=== PATIENT | female | born 1945 | race Caucasian/White ===

== ENCOUNTER 2016-07-29 08:29 | Inpatient (IN) ==
[2016-07-29] MEDS ORDERED: ASPIRIN PO STA (08:30)
[2016-07-29 08:44] LABS: MANUAL DIFF NEEDED? NO
[2016-07-29 08:46] LABS: BASO% 0.2 % (0.0-0.8); EOS# 0.18 X1000 (0.0-0.7); EOS% 1.9 % (0.0-10.0); HEMATOCRIT 37.3 % (37.0-47.0); HEMOGLOBIN 11.6 g/dL (12.0-16.0); IMM GRAN# 0.01 X1000 (0.0-0.04); IMM GRAN% 0.1 % (0.0-0.5); LYMPH# 1.73 X1000 (1.2-3.4); LYMPH% 18.2 % (20.5-51.1); MCH 29.3 PG (27-31); MCHC 31.1 g/dL (33-37); MCV 94.2 FL (81-99); MONO# 0.45 X1000 (0.11-0.59); MONO% 4.7 % (1.7-9.3); MPV 10.6 FL (7.4-10.4); NEUT% 74.9 % (42.2-75.2); PLT 209 X1000 (130-400); RBC 3.96 XMIL (4.2-5.4)
--- NOTE | 2016-07-29 08:49 | EKG Report ---
Test Performed on : 07/29/2016 08:34:05 AM Test Reason : SOB/CP Blood Pressure : / mmHG Vent. Rate : 069 BPM Atrial Rate : 069 BPM P-R Int : 170 ms QRS Dur : 162 ms QT Int : 448 ms P-R-T Axes : 002 -59 112 degrees QTc Int : 480 ms Sinus rhythm. with fusion complexes Left bundle branch block Abnormal ECG No previous ECGs available Unconfirmed Result
[2016-07-29 09:02] LABS: INR 2.52 (0.86-1.15); PROTIME 27.2 Seconds (12.1-15.5); PTT PL 41.1 Seconds (22.6-43.9)
[2016-07-29 09:10] LABS: ALBUMIN 3.6 g/dL (3.5-5.0); CALCIUM 8.6 mg/dL (8.8-10.2); MAGNESIUM 1.9 mg/dL (1.5-2.7); TOTAL BILIRUBIN 0.6 mg/dL (0.20-1.00); TOTAL PROTEIN 7.2 g/dL (6.3-8.3)
--- NOTE | 2016-07-29 11:07 | EKG Report ---
Test Performed on : 07/29/2016 10:34:04 AM Test Reason : repeat Blood Pressure : / mmHG Vent. Rate : 066 BPM Atrial Rate : 066 BPM P-R Int : 172 ms QRS Dur : 160 ms QT Int : 466 ms P-R-T Axes : -12 -16 151 degrees QTc Int : 488 ms Normal sinus rhythm. Left bundle branch block Abnormal ECG When compared with ECG of 29-JUL-2016 08:34, (Unconfirmed) fusion complexes are no longer present Unconfirmed Result
[2016-07-29] MEDS ORDERED: NITROGLYCERIN SL PRN (11:36)
--- NOTE | 2016-07-29 11:44 | Diag Imaging Result Document ---
PROCEDURE NAME: CHEST-2 VIEWS - 07/29/2016 CHEST, 2 VIEWS: COMPARISON: 06/13/2016. FINDINGS: Heart size appears upper normal. There is transvenous cardiac pacemaker again seen. There has been development of bilateral interstitial infiltrates or edema, most prominent at the lung bases. There is a small amount of pleural fluid along the right minor fissure. There is no dense consolidation, large pleural effusion or pneumothorax identified. IMPRESSION: Development of bilateral interstitial infiltrates or edema, most prominent at the lung bases. [facility]
[2016-07-29] MEDS ORDERED: LANOXIN PO SCH (12:08)
[2016-07-29] MEDS: LOPRESSOR PO SCH ×2 (12:40→20:28)
[2016-07-29] MEDS: CELEXA PO SCH (12:40)
[2016-07-29] MEDS: VITAMIN D PO SCH (12:40)
[2016-07-29] MEDS: LASIX IV SCH (12:40)
[2016-07-29] MEDS: ALDACTONE PO SCH (12:41)
[2016-07-29] MEDS: ASPIRIN PO SCH (12:43)
--- NOTE | 2016-07-29 13:27 | HISTORY AND PHYSICAL ---
PRIMARY CARE PHYSICIAN: Dr. Nicole Xie CHIEF COMPLAINT: Shortness of breath and weakness that has progressively worsened over the past couple of days. HISTORY: This is a 70-year-old female who presents to [facility] with complaints of increased shortness of breath and weakness that has been present over the past couple of days that had progressively worsened. On arrival, she was noted to have a room- air saturation of 94% and she had a proBNP of 2671. States that she had noticed when she weighed herself at home that she had gained approximately 5 pounds over the past couple of days. So, she is now being admitted for further evaluation and treatment. PAST MEDICAL HISTORY: [place], congestive heart failure and hypertension. PAST SURGICAL HISTORY: Pacemaker placement, defibrillator placement, heart stent. She had a cardiac cath at the end of last year that showed no blockage. FAMILY HISTORY: Noncontributory. SOCIAL HISTORY: She currently lives with family. Denies any tobacco, alcohol, or illicit drug use. ALLERGIES: She has no known drug allergies. HOME MEDICATIONS: She takes aspirin 81 mg p.o. daily, Lipitor 20 mg p.o. at bedtime, vitamin D 3 1000 unit capsule daily, Celexa 40 mg p.o. daily. Lanoxin 125 mcg p.o. daily, Ativan 1 mg p.o. at bedtime, Lopressor 25 mg p.o. b.i.d., Nitrostat 0.4 mg sublingually p.r.n., spironolactone 25 mg p.o. daily, and Coumadin 5 mg p.o. at bedtime. LABORATORY DATA: White blood cell count of 9.53, hemoglobin 11.6, hematocrit 37.3, platelets 209,000. PT and INR of 27.2 and 2.52, D-dimer less than 0.22. Sodium of 141, potassium 4.0, chloride 105, CO2 23, BUN of 22, creatinine 1.3. This appears to be around her baseline. Glucose 105, magnesium 1.9. Cardiac enzymes x2 sets were negative. A proBNP of 2671. Chest x-ray showed development of bilateral interstitial infiltrates or edema most prominent at the lung bases. REVIEW OF SYSTEMS: She denied any fever, chills, blurred vision, dizziness, chest pain, coughing, she was positive for shortness of breath and some generalized weakness. Denied any abdominal pain, constipation, diarrhea, nausea, vomiting or burning or hurting with urination. PHYSICAL EXAMINATION: VITAL SIGNS: On arrival, she had a showed a temperature of 98.9 degrees. Pulse 74, respirations 18, blood pressure 115/80, saturating 94% on room air. GENERAL: This is a 70-year-old female who is lying in the bed. Answers all questions appropriately. HEENT: Normocephalic and atraumatic. The pupils are equal, round, reactive to light. Extraocular movements are intact. The oropharynx and nares are clear. NECK: Supple. LUNGS: Clear to auscultation with equal lung expansion and chest wall movement. HEART: Regular rate and rhythm. No murmurs, rubs, or gallops. ABDOMEN: Soft, nontender, nondistended. Bowel sounds are present x4 quadrants. EXTREMITIES: There is no clubbing, cyanosis, or edema. NEUROLOGICAL: The cranial nerves 2-12 are grossly intact. ASSESSMENT: 1. An acute congestive heart failure exacerbation. 2. Dyspnea. 3. Generalized weakness. 4. Hypertension. PLAN: She has been admitted to the medical unit at [facility]. Placed on telemetry. O2 per protocol. Healthy heart diet. We will obtain an echocardiogram today. Check Pro time with INR in the a.m. We will do serial cardiac enzymes. Place on Lasix 40 mg IV q.12h. Daily weights, and we will restart her home medications. It is noted that the patient does not have a living will and is not interested in one at this time and remains a full code. Dictated by ZULEIMA Monte for Gomez Gallardo MD cc: ZULEIMA Monte MD Bernice Swain, MD will evaluate for CHF closely ; continue diuresis and follow [facility]
[2016-07-29] MEDS ORDERED: ZOFRAN IV PRN (15:39)
[2016-07-29] MEDS ORDERED: TYLENOL PO PRN (15:39)
[2016-07-29] MEDS: LIPITOR PO SCH (20:27)
[2016-07-29] MEDS: COUMADIN PO SCH (20:28)
[2016-07-29] MEDS: ATIVAN PO SCH (20:28)
[2016-07-29] MEDS ORDERED: LOPRESSOR PO SCH (21:00)
[2016-07-30] MEDS: LASIX IV SCH ×4 (00:34→23:30)
[2016-07-30 05:39] LABS: HEMATOCRIT 36.5 % (37.0-47.0); HEMOGLOBIN 11.1 g/dL (12.0-16.0); MCH 28.7 PG (27-31); MCHC 30.4 g/dL (33-37); MCV 94.3 FL (81-99); MPV 11.9 FL (7.4-10.4); RBC 3.87 XMIL (4.2-5.4)
[2016-07-30 06:05] LABS: CALCIUM 8.8 mg/dL (8.8-10.2); POTASSIUM 3.9 mmol/L (3.5-5.1)
[2016-07-30 06:11] LABS: INR 2.39 (0.86-1.15); PROTIME 26.1 Seconds (12.1-15.5)
[2016-07-30] MEDS: LOPRESSOR PO SCH ×2 (08:58→21:53)
[2016-07-30] MEDS: LANOXIN PO SCH (08:58)
[2016-07-30] MEDS: VITAMIN D PO SCH (08:58)
[2016-07-30] MEDS: CELEXA PO SCH (08:58)
[2016-07-30] MEDS: ALDACTONE PO SCH (08:58)
[2016-07-30] MEDS: ASPIRIN PO SCH (08:58)
[2016-07-30] MEDS ORDERED: ALDACTONE PO SCH (09:00)
[2016-07-30] MEDS ORDERED: CELEXA PO SCH (09:00)
[2016-07-30] MEDS ORDERED: VITAMIN D PO SCH (09:00)
[2016-07-30] MEDS ORDERED: ASPIRIN PO SCH (09:00)
[2016-07-30] MEDS ORDERED: LANOXIN PO SCH (09:00)
[2016-07-30 10:27] LABS: URINE CULTURE PL NEEDED? NO
[2016-07-30 10:31] LABS: BILIRUBIN URINE NEGATIVE (NEGATIVE); BLOOD URINE NEGATIVE (NEGATIVE); CLARITY CLEAR (CLEAR); COLOR YELLOW; GLUCOSE URINE NEGATIVE (NEGATIVE); LEUKOCYTES URINE NEGATIVE (NEGATIVE); NITRITE URINE NEGATIVE (NEGATIVE); PROTEIN URINE NEGATIVE (NEGATIVE); SP GRAVITY URINE 1.015; UROBILINOGEN URINE NORMAL
[2016-07-30 10:50] LABS: URINE EPITHELIAL CELLS <10 /HPF (<10); URINE SOURCE CLEAN CATCH
[2016-07-30] MEDS: PRINIVIL PO SCH (13:52)
--- NOTE | 2016-07-30 14:06 | ECHO REPORT ---
ORDER DATE: 07/29/2016 INTERPRETING PHYSICIAN: Dr. Ly REQUESTING PHYSICIAN: CLINICAL INDICATIONS: This is a 70-year-old female with CHF and shortness of breath, history of pacemaker. M-MODE MEASUREMENTS: Right ventricle: 2.6 cm. Left ventricle end diastole: 6.2 cm. Left ventricle end systole: 4.9 cm. Posterior wall: 1.0 cm. Interventricular septum: 1.0 cm. Left atrium: 4.9 cm. Aortic root: 3.1 cm. SUMMARY OF 2-DIMENSIONAL IMAGIN. The left ventricular chamber is dilated. The global left ventricular systolic function is significantly impaired, estimated at 25% to 30%. There are multiple areas of wall motion abnormality including the anteroseptal segment of the left ventricle, the apex, the interventricular septum, the inferior wall. This is consistent with multivessel coronary artery disease. 2. Best contractility noted at the lateral wall of the left ventricle. 3. Aortic valve looks normal. Color flow mapping is unremarkable. 4. Mitral valve shows mild to moderate degree of regurgitation. 5. Pulse wave Doppler of mitral inflow shows a pseudo normal pattern with a tall E wave and short A wave. 6. The tissue Doppler of septal and lateral mitral annulus averages 6 cm. 7. The E/E prime ratio is greater than 15, indicating elevation of left atrial pressure. 8. The tricuspid valve showed mild to moderate degree of regurgitation. 9. The inferior vena cava is at the upper limits of normal. 10.Pulmonary systolic pressure is estimated at 43 mmHg. 11.Pulmonic valve looks normal. 12.The left atrium is significantly dilated. 13.There is a trace pericardial effusion. 14.There is also a moderate size left pleural effusion. CONCLUSIONS: 1. Dilated left ventricle with significantly impaired systolic function. Ejection fraction visually is estimated to be in the range of 25% to 30%, by computer tracing may be closer to 30%, less than 35%. 2. Multiple areas of wall motion abnormality including the septum, the anteroseptal segment, the inferior wall. 3. Mild to moderate degree of mitral regurgitation. 4. Mild to moderate degree of tricuspid regurgitation with a pulmonary pressure of 43 mmHg. 5. Elevated left atrial pressure. 6. Dilated left atrium. 7. Pacemaker lead noted within the right-sided chamber. 8. Left pleural effusion noted. Clinical correlation is recommended. cc: MD Chelsey Cuello CRNP
--- NOTE | 2016-07-30 14:46 | PROGRESS NOTE ---
DATE: 07/30/2016 SUBJECTIVE: Patient has no focal complaints. OBJECTIVE: Blood pressure 134/89, heart rate 69, respiratory rate of 18, temperature 98 degrees, 92% on 2 L.Cardiovascular: Regular rate and rhythm. Pulmonary: Bilateral breath sounds. Clear to auscultation. Has rales on the bases. GI: Soft, nontender, nontender, nondistended. Bowel sounds are positive. LABORATORY DATA: Shows a white count of 8, hemoglobin and hematocrit 11, 36. INR of 2.39. Chemistry showed a creatinine of 1.4. Digoxin level was normal. PROBLEM LIST: 1. Acute congestive heart failure exacerbation presumed systolic. I am waiting on echocardiogram report. 2. Waiting on the echocardiogram results to decide about other treatment options. I am going to add an ARUN inhibitor. She is already on Aldactone, Lopressor, digoxin. 3. Hypertension appears to be stable. Continue regular medications and follow. DISPOSITION: Pending her resolution of her other issues may be another day or 2 before discharge. cc: Gomez Gallardo MD
[2016-07-30] MEDS: ATIVAN PO SCH (21:53)
[2016-07-30] MEDS: COUMADIN PO SCH (21:53)
[2016-07-30] MEDS: LIPITOR PO SCH (21:53)
[2016-07-31 06:05] LABS: HEMATOCRIT 36.7 % (37.0-47.0); HEMOGLOBIN 11.2 g/dL (12.0-16.0); MCH 28.6 PG (27-31); MCHC 30.5 g/dL (33-37); MCV 93.6 FL (81-99); MPV 11.5 FL (7.4-10.4); RBC 3.92 XMIL (4.2-5.4)
[2016-07-31 06:26] LABS: POTASSIUM 3.9 mmol/L (3.5-5.1)
[2016-07-31] MEDS: ALDACTONE PO SCH (08:47)
[2016-07-31] MEDS: VITAMIN D PO SCH (08:47)
[2016-07-31] MEDS: CELEXA PO SCH (08:48)
[2016-07-31] MEDS: ASPIRIN PO SCH (08:48)
[2016-07-31] MEDS: PRINIVIL PO SCH (08:48)
[2016-07-31] MEDS: LOPRESSOR PO SCH ×2 (08:48→20:46)
--- NOTE | 2016-07-31 09:29 | Diag Imaging Result Document ---
PROCEDURE NAME: CHEST-PORTABLE - 07/31/2016 PORTABLE CHEST: COMPARISON: 07/29/2016. FINDINGS: There is a left-sided pacemaker. The lungs are well expanded. The heart is mildly enlarged. The vessels are not distended. There are no infiltrates on the current exam. No pleural effusions. IMPRESSION: Cardiomegaly.
--- NOTE | 2016-07-31 15:35 | PROGRESS NOTE ---
DATE: 07/31/2016 SUBJECTIVE: The patient's breathing has improved. OBJECTIVE: Blood pressure 106/65, heart rate 65, respiratory 16, temperature 97.5 degrees, 98% on 2 L.Cardiovascular: Regular rate and rhythm. Pulmonary: Bilateral breath sounds. Clear to auscultation. GI: Soft, nontender, nondistended. Bowel sounds are positive. LABORATORY DATA: White count normal. Hemoglobin and hematocrit 11, 36. Platelets 202,000. Creatinine 1.5. ProBNP is down from 2671 to 779. PROBLEM LIST: 1. Congestive heart failure exacerbation acute systolic with increasing creatinine. I am going to switch her to p.o. Lasix and follow. I am going to get Cardiology opinion. Continue to monitor. She is already on Aldactone, lisinopril, Lopressor, digoxin. 2. Hypertension. Appears to be stable. Her echocardiogram does reveal some wall motion abnormalities, not quite sure what that is related to. She does have a pacer in place. It would be nice to be able to compare to previous echocardiograms. We are trying get old records and then I am going to get Cardiology opinion associated. 3. Atrial fibrillation. She is on Coumadin and her INR has been therapeutic. We will check again tomorrow. Possible discharge tomorrow depending on her clinical status. cc: Gomez Gallardo MD
[2016-07-31] MEDS ORDERED: PRINIVIL PO SCH (16:48)
--- NOTE | 2016-07-31 17:11 | CONSULTATION ---
DATE OF CONSULTATION: 07/31/2016 INDICATION: Congestive heart failure. HISTORY OF PRESENT ILLNESS: Ms. Bellamy is a 70-year-old white female with a history of an ischemic cardiomyopathy, who presented for evaluation of shortness of breath that has been progressive over the last month. Symptoms much worse over the previous week. She is noted to have issues with orthopnea. She reports compliance with her medications as well as attempting to adhere to a sodium restriction. However, it seems like she is not adding any salt to any foods but may not be avoiding high salt containing foods. She has noticed improvement in her symptoms overall since presentation and has reported reasonable diuresis. She denies any episodes of chest pain. No fevers. PAST MEDICAL HISTORY: Significant for an: 1. Ischemic cardiomyopathy normally followed by Dr. Young. 2. Hypertension. 3. Previous NE with occluded LAD, treated via PCI but continuing to have a residual anterior wall defect. FAMILY HISTORY: Significant for hypertension. SOCIAL HISTORY: is present at bedside. No tobacco use. No alcohol or illicit drugs. REVIEW OF SYSTEMS: A 10 system review of systems is negative except for those things mentioned in the HPI. PHYSICAL EXAMINATION: She is afebrile here. Heart rate 68, blood pressure 90/60 most recently. Her I's and O's during this hospitalization have been difficult to track. She has no outputs measured today, other than to continent voids not measured.General: No acute distress. HEENT: Oropharynx is moist. Normal dentition. Eye examination shows pink conjunctivae. White sclerae. Neck: Shows no obvious thyromegaly or thyroid tenderness. Cardiovascular: She sounds to be in a regular rate and rhythm. She has no obvious murmurs. Her telemetry currently shows sinus rhythm with ventricular paced complexes. She has warm and well perfused lower extremities. Chest: Clear bilaterally. She has no increased work of breathing. Abdomen: Soft, nontender, nondistended. She has no obvious organomegaly. Skin Exam: Warm and dry throughout without any rashes. Neurological: Moving all extremities well. Cranial nerves 2 through 12 are intact without any sensation deficits. Psychiatric: Alert, oriented, and pleasant. She has normal mood and affect. PERTINENT DATA: Her EKG shows sinus rhythm at 69 beats per minute from the 29th at 8:34. It looks like a left bundle; however, could possibly be ventricular paced complexes but I do not see any clear pacing complexes. Her subsequent EKG at 10:34 that same day showed sinus rhythm at 66. Again, suggestion of a left bundle branch block. No clear evidence of paced complexes seen on that study. Her echo from the shows an EF of 25 to 30%. This appears to be consistent with her previous EKG, ordered by Dr. Young. She does have wall motion abnormalities in the anterior septal segment, again consistent with Dr. Young's previously ordered echo. She has a moderate degree of MR, mild to moderate degree of TR. Elevated left atrial pressure was known as well as evidence for a pacemaker lead. Chest x-ray shows a left-sided pacemaker. Vessels were not distended. No effusions identified. Her laboratory data showed a white count of 8.3, hematocrit 36.7, platelet count 202,000. Her INR yesterday was 2.39, sodium 139, potassium 3.9, BUN 35, creatinine 1.5, proBNP was 779 with an initial 2,671 on the . Cardiac enzymes negative times multiple sets. Digoxin level 0.4. ASSESSMENT: 1. Acute on chronic systolic heart failure. 2. Previous history of left ventricular thrombus. PLAN: The patient seems to be doing much better. ProBNP has dropped roughly 3-4 times from its initial visit. The patient was maintained on metoprolol and digoxin at home and seemed to be doing well on those medications. However, worsening over the last month would indicate that she needs an escalation in therapy. The hospitalist service has already added in lisinopril 10 mg daily. In addition, I would also consider possibly putting the patient on a low dose of diuretic at home, possibly Lasix 20 mg once a day or potentially 3 times a week. She may be discharged on those medication doses. I would initially try the lisinopril and possible Sunday, Sunday, Sunday Lasix at 20 mg daily and then have her follow up with Dr. Young as an outpatient. Again, the patient seems to be doing markedly better and has had a significant diuresis. In addition, her proBNP level has dropped roughly 4 fold since her admission level. cc: Jose Amaro MD
[2016-07-31] MEDS: LIPITOR PO SCH (20:46)
[2016-07-31] MEDS: ATIVAN PO SCH (20:46)
[2016-07-31] MEDS: COUMADIN PO SCH (20:46)
[2016-08-01 06:48] LABS: HEMATOCRIT 35.8 % (37.0-47.0); HEMOGLOBIN 10.9 g/dL (12.0-16.0); MCH 28.5 PG (27-31); MCHC 30.4 g/dL (33-37); MCV 93.5 FL (81-99); RBC 3.83 XMIL (4.2-5.4)
[2016-08-01 06:51] LABS: CALCIUM 8.2 mg/dL (8.8-10.2); MAGNESIUM 1.7 mg/dL (1.5-2.7); POTASSIUM 4.1 mmol/L (3.5-5.1)
[2016-08-01 07:39] LABS: INR 2.18 (0.86-1.15); PROTIME 24.4 Seconds (12.1-15.5)
[2016-08-01 08:07] VITALS: BP 98/62
[2016-08-01] MEDS: VITAMIN D PO SCH (08:28)
[2016-08-01] MEDS: CELEXA PO SCH (08:29)
[2016-08-01] MEDS: LANOXIN PO SCH (08:29)
[2016-08-01] MEDS: ASPIRIN PO SCH (08:29)
[2016-08-01] MEDS: ALDACTONE PO SCH (08:29)
[2016-08-01] MEDS: LOPRESSOR PO SCH (08:29)
[2016-08-01] MEDS ORDERED: LASIX IV SCH (09:00)
[2016-08-01] MEDS ORDERED: LASIX PO SCH ×2 (09:00)
--- NOTE | 2016-08-01 11:58 | DISCHARGE SUMMARY ---
ADMISSION DATE: 07/30/2016 DISCHARGE DATE: 08/01/2016 DIAGNOSES: 1. Ischemic cardiomyopathy. 2. Chronic heart failure exacerbation with acute systolic. 3. Hypertension. 4. Previous myocardial infarction with occluded left anterior descending, treated with PCI but continuing to have a residual anterior wall defect. 5. Atrial fibrillation on chronic anticoagulation. CONSULTATIONS: Dr. Jose Amrao, Cardiology. DIAGNOSTICS: 1. 07/29/2016 echocardiogram reveals dilated left ventricle with impaired systolic function, EF is estimated at 25-30%. Multiple areas of wall motion abnormality including the septum, anterior septal segment in the inferior wall. Mild to moderate degree of mitral regurgitation, mild to moderate degree of tricuspid regurgitation with a pulmonary pressure 43 mmHg. Dilated left atrium. Pacemaker lead noted within the right chamber. Left pleural effusion noted. 2. 07/31/2016 chest x-ray reveals cardiomegaly. Lungs are well expanded. Heart is mildly enlarged. Vessels are not distended. There are no infiltrates. HOSPITAL COURSE: Ms. Bellamy presented to the emergency room with increasing shortness of breath over the prior month. Symptoms became much worse over the previous week having issues with orthopnea. She states she has been compliant with her medications as well as sodium restriction. She did have a proBNP of 2671 on admission after diuresis of about 3 L. Her proBNP has dropped to 779 with improvement in symptoms. She is maintained on metoprolol and digoxin at home, but due to worsening, lisinopril was added as well as Lasix p.o. per Cardiology's recommendations. She will be discharged on lisinopril with Lasix 23 times a week with followup with her primary care physician in 1-2 weeks for further dosing. We did continue her Coumadin at her prehospitalization dose. INRs remained therapeutic at 2.18-2.52 with 2-3 being the target for atrial fibrillation. DISCHARGE PHYSICAL EXAMINATION: Cardiovascular: Regular rate and rhythm. S1 and S2 appreciated with no obvious murmurs, rubs, or gallops. Pulmonary: Breath sounds are clear with no increased work of breathing noted. Gastrointestinal: Soft, nondistended, nontender with bowel sounds in all 4 quadrants. Skin: Warm and dry. No rashes or lesions noted. Extremities: No clubbing, cyanosis, or edema. Calves nontender. Pulses palpable x4. Neurologic: She is alert and oriented x 3. Cranial nerves 2-12 grossly intact. LABORATORY: Telemetry showed sinus rhythm with ventricular paced complexes. Next EKG x 2 revealed sinus rhythm at 9 and 66 beats respectively with suggestion of a left bundle branch block with no clear evidence of pace complexes seen on either study. DISCHARGE MEDICATIONS: 1. Magnesium 200 mg p.o. b.i.d. 2. Aspirin 81 mg daily. 3. Lipitor 20 at bedtime. 4. Spironolactone 25 mg daily. 5. Metoprolol 25 mg p.o. b.i.d. 6. Lorazepam 1 mg at bedtime. 7. Celexa 40 mg daily. 8. Vitamin D3 1000 daily. 9. Coumadin 500 mg at bedtime. 10. Lanoxin 0.125 every other day. 11. Prinivil 5 mg daily. 12. Lasix 20 mg Sunday, Sunday, and Sunday. DISCHARGE DIET: Healthy heart with sodium restriction. DISCHARGE ACTIVITY: As tolerated. FOLLOW-UP: 1. She needs to follow up with her manager legal, Dr. Young in 1 week. At that time, further instructions regarding Lasix and home medications will be obtained, sooner if needed. 2. Follow up with [facility] as per their previous instructions. She is being discharged home in stable condition with family members. TIME SPENT: This is a greater than 30 minute discharge from 10 o'clock to 10:35. Dictated by ZULEIMA Carpenter for Vijay Garza MD cc: ZULEIMA Carpenter MD Gocha Saliashvili, MD
--- NOTE | 2016-08-08 02:20 | ED EKG INTERP ---
This chart was entered by Paz France, acting as scribe for Jono Cline MD. EKG Interpretation - EKG Time of EKG reading by physician:: 08:34 EKG Read and Signed by:: Jono Cline EKG Interpretation (*Must complete 3 of following elements*): Abnormal (sinus rhythm with fusion complexes, left bundle branch block, Abnormal ECG) Rate: 69 Rhythm: sinus rhythm with fusion complexes QRS: LBB OK Interval: normal ST Wave: normal This chart was documented by the indicated scribe, (Paz France) and accurately reflects the services I performed and decisions made by ct, Jono Cline MD, as attested by the provider's signature.
--- NOTE | 2016-08-08 02:20 | PROVIDER DOCUMENTATION ---
This chart was entered by Paz France, acting as scribe for Jono Cline MD. HPI-Respiratory General - General Chief Complaint: Shortness of Breath Stated Complaint: SOB/CHEST PAIN Time Seen by Provider: 07/29/16 09:58 Source: patient, family Allergies/Adverse Reactions: Patient Allergies Allergy/AdvReac Type Severity Reaction Status Date / Time No Known Allergies Allergy Verified 07/29/16 08:35 Home Medications: Home Medication List Medication Instructions Recorded Confirmed Last Taken Type ATORVAstatin [Lipitor] 20 mg PO HS 03/26/14 07/29/16 07/28/16 History Cholecalciferol (Vitamin D3) 1,000 cap PO DAILY 03/26/14 07/29/16 07/29/16 History [Vitamin D3] Citalopram [Celexa] 40 mg PO DAILY 03/26/14 07/29/16 07/29/16 History Lorazepam 1 mg PO HS 03/26/14 07/29/16 07/28/16 History Metoprolol [Lopressor] 25 mg PO BID 03/26/14 07/29/16 07/29/16 History Nitroglycerin [Nitrostat] 0.4 mg SL PRN PRN 03/26/14 07/29/16 03/26/14 15:30 History Aspirin [[place] Aspirin] 81 mg PO DAILY 04/30/14 07/29/16 07/29/16 History Digoxin [Lanoxin] 125 mcg PO EVERY OTHER DAY 04/30/14 07/29/16 07/28/16 09:00 History Spironolactone 0.5 mg PO DAILY 04/30/14 07/29/16 07/28/16 History Warfarin [Coumadin] 5 mg PO HS 04/30/14 07/29/16 07/28/16 History Magnesium 200 mg PO BID 07/29/16 07/29/16 07/29/16 History Furosemide [Lasix] 20 mg PO DIRECTED #30 tablet 08/01/16 Unknown Rx LISINOpril [Prinivil] 5 mg PO DAILY #30 tablet 08/01/16 Unknown Rx - History of Present Illness-Resp Nature of Presenting Problem: pt is a 70 year old female present to the ER with cc of shortness of breath and weakness for several days. Pt stats she had a previous [place], pacer and defibrillator in place. she has become more SOB but denies fever. Family at bedside Quality of Pain: reports: none Severity in ED: reports: moderate Onset/Duration: reports: 2 days ago Timing: reports: still present Exposure: reports: unknown cause Episode Frequency: no prior episodes Current Respiratory Medication Therapy: Initiated see nurses note Modifying Factors: improves with: nothing Associated Symptoms: reports: shortness of breath. denies: chest pain/soreness , cough, dizziness, earache, facial pain, fever/chills, headache, heart racing Similar Symptoms Previously?: No Recently seen or treated by another doctor?: No Review of Systems - Adult - REVIEW OF SYSTEMS - ADULT Constitutional: denies: chills, fever Eyes: denies: discharge, dry eyes Ears, Nose, Mouth & Throat: denies: ear discharge, ear pain, hearing loss, tinnitus Cardiovascular: denies: chest pain, edema, heart murmur, irregular heart rate Respiratory: reports: shortness of breath. denies: chronic cough, cough, dyspnea on exertion Gastrointestinal: reports: no symptoms reported Genitourinary: reports: no symptoms reported Musculoskeletal: reports: no symptoms reported Integumentary: reports: no symptoms reported Neurological: reports: no symptoms reported Psychiatric: reports: no symptoms reported Endocrine: reports: no symptoms reported Hematologic/Lymphatic: reports: no symptoms reported Allergic/Immunologic: reports: no symptoms reported All Other Systems: Reviewed and Negative Past History - Adult - PAST MEDICAL HISTORY-ADULT Review of Records: reports: Old Records Reviewed, Nursing Assessment Review Cardiovascular: reports: cardiac disease (had cardiac cath last winter and told no problems found. No stents or pplasty done. Unknown if prior LBBB.), [place] - PRIOR SURGERIES/PROCEDURES Surgical/Procedure History: reports: pacemaker - IMMUNIZATION STATUS Childhood Immunizations: See Nurse Assessment Flu Vaccine: See Nurse Assessment - SOCIAL HISTORY Smoking: denies Physical Exam-General - PHYSICAL EXAM-ADULT Initial Vital Signs Reviewed: Yes - CONSTITUTIONAL General Appearance: appears well, alert, mild distress - EYES Eyes: PERRL/EOMI, pink conjunctivae - HEAD, EARS, NOSE, MOUTH & THROAT HENMT: moist mucous membranes, normal ENT inspection, TMs normal, pharynx normal - NECK Neck: non-tender, full range of motion - RESPIRATORY Respiratory: chest non-tender, lungs clear, normal breath sounds, no pleuratic chest pain, no respiratory distress, no accessory muscle use, other (short of breath) - CARDIOVASCULAR Cardiovascular: normal peripheral pulses, regular rate, rhythm, no edema, no gallop, no JVD - GASTROINTESTINAL (ABDOMEN) Abdominal Exam: normal bowel sounds, non tender, soft - LYMPHATIC Lymphatic: no adenopathy - MUSCULOSKELETAL Back Exam: normal inspection, no CVA tenderness Extremity: normal range of motion, non-tender, normal gait, normal inspection, no pedal edema, no calf tenderness, normal capillary refill - SKIN Integumentary: normal color, normal turgor, warm/dry - NEUROLOGIC Neurologic: grossly normal, no motor/sensory deficits - PSYCHIATRIC Psych/Mental Status: normal mood/affect, normal thought content, normal thought process, oriented x 3 Progress - PLAN OF CARE/RESULTS Progress/Plan/Lab Results: Orders Category Date Time Status Admit - [facility] Routine AdmDCTranf 07/29/16 10:24 Ordered Cardiac Monitoring DIRECTED Care 07/29/16 08:30 Completed Daily Weights 0500 Care 07/29/16 12:11 Active Saline Loc NOW Care 07/29/16 08:30 Completed Vital Signs Order Q 8-HR .ASSESS Care 07/29/16 10:24 Active Heart Healthy Diet Diet 07/29/16 10:27 Completed Heart Healthy Diet Diet 07/29/16 11:37 Completed CHEST-2 VIEWS [RAD] Stat Exams 07/29/16 08:30 Completed BASIC METABOLIC PANEL [CHEM] Routine Lab 07/30/16 04:55 Completed CBC WITH ELECTRONIC DIFF [HEME] Stat Lab 07/29/16 08:35 Completed CBC WITH NO DIFF [HEME] Routine Lab 07/30/16 04:55 Completed CK PROFILE [SP CHEM] Q4H Lab 07/29/16 12:10 Completed CK PROFILE [SP CHEM] Q4H Lab 07/29/16 17:00 Completed CK PROFILE [SP CHEM] Stat Lab 07/29/16 08:35 Completed CK PROFILE [SP CHEM] Stat Lab 07/29/16 10:39 Completed COMPREHENSIVE METABOLIC PANEL [CHEM] Stat Lab 07/29/16 08:35 Completed D-DIMER PL [COAG] Stat Lab 07/29/16 08:35 Completed DIGOXIN [TDM] Routine Lab 07/30/16 04:55 Completed MAGNESIUM [CHEM] Stat Lab 07/29/16 08:35 Completed PRO B-NATRIURETIC PEPTIDE Stat Lab 07/29/16 08:35 Completed [address]IME WITH INR PL [COAG] Routine Lab 07/30/16 04:[address]IME WITH INR [address] [COAG] Stat Lab 07/29/16 08:[address] [COAG] Stat Lab 07/29/16 08:35 Completed TROPONIN T Q4H Lab 07/29/16 12:10 Completed TROPONIN T Q4H Lab 07/29/16 17:00 Completed TROPONIN T Stat Lab 07/29/16 08:35 Completed TROPONIN T Stat Lab 07/29/16 10:39 Completed ua [URINALYSIS PL W/POSS RFLX CULT] [URINALYSIS] Lab 07/30/16 10:20 Completed Routine ATORVAstatin [Lipitor] Med 07/29/16 21:00 Discontinued 20 mg PO HS Acetaminophen [Tylenol] Med 07/29/16 15:39 Discontinued 650 mg PO Q6H PRN PRN Aspirin Med 07/29/16 08:30 Discontinued 325 mg PO STAT STA Aspirin Med 07/29/16 12:07 Discontinued 81 mg PO DAILY Aspirin Med 07/30/16 09:00 Discontinued 81 mg PO DAILY Cholecalciferol (Vit D3) [Vitamin D] Med 07/29/16 12:07 Discontinued 1,000 unit PO DAILY Cholecalciferol (Vit D3) [Vitamin D] Med 07/30/16 09:00 Discontinued 1,000 unit PO DAILY Citalopram [Celexa] Med 07/29/16 12:07 Discontinued 40 mg PO DAILY Citalopram [Celexa] Med 07/30/16 09:00 Discontinued 40 mg PO DAILY Digoxin [Lanoxin] Med 07/29/16 12:08 Discontinued 125 microgm PO DAILY Digoxin [Lanoxin] Med 07/30/16 09:00 Discontinued 125 microgm PO DAILY Digoxin [Lanoxin] Med 07/30/16 09:00 Discontinued 125 microgm PO EVERY OTHER DAY Furosemide [Lasix] Med 07/29/16 11:36 Discontinued 40 mg IV Q12H Lorazepam [Ativan] Med 07/29/16 21:00 Discontinued 1 mg PO HS Metoprolol [Lopressor] Med 07/29/16 12:08 Discontinued 25 mg PO BID Metoprolol [Lopressor] Med 07/29/16 21:00 Discontinued 25 mg PO BID Nitroglycerin Sl [Nitroglycerin] Med 07/29/16 11:36 Discontinued 0.4 mg SL PRN PRN Ondansetron [Zofran] Med 07/29/16 15:39 Discontinued 4 mg IV Q4H PRN PRN Spironolactone [Aldactone] Med 07/29/16 12:09 Discontinued 25 mg PO DAILY Spironolactone [Aldactone] Med 07/30/16 09:00 Discontinued 25 mg PO DAILY Warfarin [Coumadin] Med 07/29/16 21:00 Discontinued 5 mg PO HS Oxygen Device Routine Oth 07/29/16 10:26 Completed Telemetry [OM.EQ] Routine Oth 07/29/16 10:24 Active EKG [EKG] Stat Ther 07/29/16 08:30 Draft EKG [EKG] Stat Ther 07/29/16 10:22 Draft Echo Spec/Color Dop W/O Contra Stat Ther 07/29/16 11:48 Completed Transfer/Admit Order [TRANSFER] Routine Transfer 07/29/16 10:27 Completed Result Diagrams: 08/01/16 05:05 08/01/16 05:05 - EKG 2 Time of EKG reading by physician:: 10:34 EKG Read and Signed by:: Jono Cline EKG Interpretation (*Must complete 3 of following elements*): Abnormal (normal sinus rhythm, left bundle branch blaco, abnormal ECG) Rate: 66 Rhythm: NSR [place]: normal QRS: LBB [place] Interval: normal ST Wave: normal Prior EKG Comparison: unchanged from prior Departure - Departure Time of Disposition Decision: 10:24 DIAGNOSIS: CHF (congestive heart failure) Qualifiers: Congestive heart failure type: combined Congestive heart failure chronicity: unspecified congestive heart failure chronicity Qualified Code(s): 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
== END 2016-08-01 12:00 | disposition home or self-care (01) ==
LOC: P.ED 08:29 → P.MEDSURG 08:29 → SUATTDRO 07-30 07:53
PROVIDERS: ATTEND Family Medicine